=== PATIENT | female | born 1950 | race Caucasian/White ===

== ENCOUNTER 2016-06-06 12:16 | Emergency (ER) | payer OTHER | END 2016-06-06 15:00 | disposition home or self-care (01) | DX: S30.0XXA Contusion of lower back and pelvis, initial encounter (principal); M54.2 Cervicalgia; R51 Headache; W10.8XXA Fall (on) (from) other stairs and steps, initial encounter; R03.0 Elevated blood-pressure reading, without diagnosis of hypertension ==

== ENCOUNTER 2016-07-26 09:48 | Outpatient (CLI) | payer OTHER ==
--- NOTE | 2016-07-27 16:13 | Mammography Report ---
DIGITAL SCREENING MAMMOGRAM: 07/26/2016 CLINICAL INDICATION: A 66-year-old nulliparous patient, for screening. COMPARISON: 06/2015, 05/2014, 05/2013, 04/2011, 04/2010, 03/2009. TECHNIQUE: Routine CC and MLO projections were obtained of the breasts. FINDINGS: The breasts again demonstrate scattered fibroglandular densities bilaterally. Coarse, typi brijesh benign calcifications are present. No suspicious masses, clustered microcalcifications, or alana ons of architectural distortion are identified. IMPRESSION: BENIGN FINDINGS. RECOMMENDATION: ROUTINE ANNUAL SCREENING UNLESS OTHERWISE CLINICALLY INDICATED. BIRADS CATEGORY 2-BENIGN FINDINGS. STANDARD QUALIFYING STATEMENTS 1. This examination was reviewed with the aid of Computer-Aided Detection (CAD). 2. A negative or benign imaging report should not delay biopsy if clinically suspicious findings are present. Consider surgical consultation if warranted. More than 5% of cancers are not identified by i maging. 3. Dense breasts may obscure an underlying neoplasm. JOB #: [id number] EXT JOB #:[id number]
== END 2016-07-26 09:49 | disposition home or self-care (01) ==
LOC: DI 09:48
PROVIDERS: ATTEND Physician Assistant Medical
DX: Z12.31 Encounter for screening mammogram for malignant neoplasm of breast (principal)
CPT/HCPCS: 77067

== ENCOUNTER 2017-01-23 08:00 | Outpatient (CLI) | payer OTHER ==
[2017-01-25 13:41] LABS: TEST RESULT REPORT (())
== END 2017-01-23 08:01 | disposition home or self-care (01) ==
LOC: LAB.R 08:00
PROVIDERS: ATTEND Physician Assistant Medical
DX: R19.7 Diarrhea, unspecified (principal)
CPT/HCPCS: 81599; 82705; 83630; 87045; 87046; 87177; 87209; 87493

== ENCOUNTER → 2017-04-05 | Outpatient (CLI) | payer MEDICARE, OTHER ==
[2017-04-12 10:54] LABS: COLLECTION DURATION 72 h; TOTAL SPECIMEN WEIGHT 656 g
== END ==
LOC: LAB.R 06:40
PROVIDERS: ATTEND Internal Medicine
DX: R19.7 Diarrhea, unspecified (principal)
CPT/HCPCS: 82710

== ENCOUNTER 2017-04-08 08:00 | Outpatient (CLI) | payer MEDICARE, OTHER ==
[2017-04-12 10:54] LABS: COLLECTION DURATION 72 h; TOTAL SPECIMEN WEIGHT 656 g
== END 2017-04-08 08:01 | disposition home or self-care (01) ==
LOC: LAB.R 08:00
PROVIDERS: ATTEND Internal Medicine
DX: R19.7 Diarrhea, unspecified (principal)
CPT/HCPCS: 81599; 82656; 82710; 87493

== ENCOUNTER 2017-04-17 12:03 | Day surgery (SDC) | payer MEDICARE, OTHER ==
[2017-04-17] MEDS ORDERED: LACTATED RINGERS 1,000 ML IV ONE (12:11)
[2017-04-17] MEDS ORDERED: MIDAZOLAM 2 MG/2 ML VIAL IVP ONE (13:04)
[2017-04-17] MEDS ORDERED: fentaNYL 100 MCG/2 ML VIAL IVP ONE (13:04)
[2017-04-17 14:38] VITALS: BP 110/44
== END 2017-04-17 12:04 | disposition home or self-care (01) ==
LOC: SDS 12:03
PROVIDERS: ATTEND Internal Medicine
PROC: 0DBN8ZZ Excision of Sigmoid Colon, Via Natural or Artificial Opening Endoscopic (ICD-10-PCS; principal; 2017-04-17 13:00)
DX: R19.7 Diarrhea, unspecified (principal); K63.5 Polyp of colon; K64.0 First degree hemorrhoids; K57.30 Diverticulosis of large intestine without perforation or abscess without bleeding
CPT/HCPCS: 45380; J7120

== ENCOUNTER 2017-09-02 15:11 | Outpatient (CLI) | payer MEDICARE, OTHER ==
--- NOTE | 2017-09-03 14:26 | Mammography Report ---
Procedure Date: 09/02/2017 Accession Number: [id number] / [id number] Procedure: AMBER - Screening Mammo Dig Bilat CPT Code: FULL RESULT: EXAM: Screening Mammo Dig Bilat DATE: 09/02/2017 3:27 PM CLINICAL HISTORY: 67-year-old nulliparous patient for screening TECHNIQUE: Bilateral CC and MLO views were obtained. COMPARISON: 07/26/2016, 07/04/2015, 06/03/2014, 05/11/2013, 04/28/2011, 04/28/2010, 03/18/2009 FINDINGS: The breasts demonstrate scattered fibroglandular densities bilaterally. A few coarse, typically benign calcifications are present. No suspicious masses, clustered microcalcifications, or regions of architectural distortion are identified. IMPRESSION: Benign findings RECOMMENDATION: Routine annual screening unless otherwise clinically indicated. BIRADS CATEGORY 2: Benign findings STANDARD QUALIFYING STATEMENTS: 1. This examination was reviewed with the aid of Computer-Aided Detection (CAD). 2. A negative or benign imaging report should not delay biopsy if clinically suspicious findings are present. Consider surgical consultation if warrented. More than 5% of cancers are not identified by imaging. 3. Dense breasts may obscure an underlying neoplasm.
== END 2017-09-02 15:12 | disposition home or self-care (01) ==
LOC: DI 15:11
PROVIDERS: ATTEND Physician Assistant Medical
DX: Z12.31 Encounter for screening mammogram for malignant neoplasm of breast (principal)
CPT/HCPCS: 77067

== ENCOUNTER 2017-09-02 15:30 | Outpatient (CLI) | payer MEDICARE, OTHER ==
--- NOTE | 2017-09-03 15:06 | DEXA Report ---
Procedure Date: 09/02/2017 Accession Number: [id number] / [id number] Procedure: DEX - Dexa Spine and/or Hip CPT Code: FULL RESULT: EXAM: Dexa Spine and/or Hip DATE: 09/02/2017 3:57 PM CLINICAL HISTORY: POSTMENOPAUSAL TECHNIQUE: Dual energy x-ray absorptiometry (DXA) was performed on a [employer] System. Regions measured are the AP Spine, femoral neck, and if needed forearm. COMPARISON: None. In accordance with the International Society for Clinical Densitometry (ISCD) guidelines, data from previous exams may be reanalyzed using current recommendations and techniques. This is done to allow a more accurate basis for comparison with the current study. FINDINGS: The data for the lumbar spine is as follows: BMD (g/cm/cm) T-SCORE Z-SCORE REGION L1 1.049 -0.7 0.4 L2 1.055 -1.2 -0.1 L3 1.177 -0.2 0.9 L4 1.008 -1.6 -0.5 TOTAL 1.073 -0.9 0.2 NOTE: All evaluable vertebrae are used for classification The data for the hip is as follows: BMD (g/cm/cm) T-SCORE Z-SCORE REGION Neck 0.821 -1.6 -0.4 TOTAL 0.856 -1.2 -0.4 NOTE: The femoral neck or total proximal femur, whichever is lowest, is used for classification. IMPRESSION: THE WHO CLASSIFICATION BASED ON THE INTERNATIONAL REFERENCE STANDARD IS OSTEOPENIA. THE FRACTURE RISK IS INCREASED. RECOMMENDATION: Patients with diagnosis of osteoporosis or osteopenia should have regular bone mineral density assessment. For those eligible for Medicare, routine testing is allowed once every 2 years. Testing frequency can be increased for patients who have rapidly progressing disease or for those who are receiving medical therapy to restore bone mass. COMMENT: World Health Organization (WHO) definitions for osteoporosis and osteopenia: NORMAL BMD: T-score at -1.0 or higher, fracture risk is low OSTEOPENIA BMD: T-score between -1.0 and -2.5, fracture risk is increased. OSTEOPOROSIS BMD: T-score at -2.5 or lower, fracture risk is high. National Osteoporosis Foundation recommends: 1. Obtain adequate dietary calcium (at least 1200 mg per day) and vitamin D (400-800 international units per day). 2. Participate, as appropriate, in regular weightbearing and muscle-strengthening exercise. 3. Avoid tobacco use and reduce alcohol and caffeine intake. 4. For more detailed information see the website at www.NOF.org.
== END 2017-09-02 15:31 | disposition home or self-care (01) ==
LOC: DI 15:30
PROVIDERS: ATTEND Physician Assistant Medical
DX: M85.88 Other specified disorders of bone density and structure, other site (principal)
CPT/HCPCS: 77080

== ENCOUNTER 2018-09-04 08:18 | Outpatient (CLI) | payer MEDICARE, OTHER ==
--- NOTE | 2018-09-05 09:35 | Mammography Report ---
Reason: SCREENING FOR BREAST CANCER Procedure Date: 09/04/2018 Accession Number: [id number] / [id number] Procedure: AMBER - Screening Mammo w/Silas CPT Code: FULL RESULT: EXAM: Screening Mammo w/Silas DATE: 09/04/2018 8:58 AM CLINICAL HISTORY: Screening encounter. History of nulliparity. Personal history of ovarian cancer. TECHNIQUE: (B) - Bilateral CC and MLO views were obtained. COMPARISON: 09/02/2017 through 06/03/2014. PARENCHYMAL PATTERN: (A) - The breast(s) demonstrate(s) scattered fibroglandular densities. FINDINGS: Note is made of vascular calcifications and coarse calcifications, typically benign. There are no suspicious masses, calcifications, or areas of distortion. IMPRESSION: Benign findings. BI-RADS category 2. RECOMMENDATION: (ANNUAL) - Recommend routine annual screening mammography. BI-RADS CATEGORY: (2) - Benign Findings. STANDARD QUALIFYING STATEMENTS: 1. This examination was not reviewed with the aid of Computer-Aided Detection (CAD). 2. A negative or benign imaging report should not preclude biopsy if clinically suspicious findings are present. 3. Dense breasts may obscure an underlying neoplasm. 4. This examination was reviewed with the aid of 3D breast imaging (tomosynthesis).
== END 2018-09-04 08:19 | disposition home or self-care (01) ==
LOC: DI 08:18
PROVIDERS: ATTEND Nurse Practitioner
DX: Z12.31 Encounter for screening mammogram for malignant neoplasm of breast (principal)
CPT/HCPCS: 77063; 77067

== ENCOUNTER 2018-09-17 09:19 | Outpatient (CLI) | payer MEDICARE, OTHER ==
[2018-09-17 10:12] LABS: ALBUMIN 4.1 g/dL (3.2-5.5); BILIRUBIN,DIRECT 0.1 mg/dL (0.1-0.5); BILIRUBIN,TOTAL 0.6 mg/dL (0.2-1.0); TOTAL PROTEIN 7.4 g/dL (6.7-8.2)
[2018-09-18 11:31] LABS: HEPATITIS C ANTIBODY NON-REACTIVE (NON-REACTIVE)
== END 2018-09-17 09:20 | disposition home or self-care (01) ==
LOC: LAB 09:19
PROVIDERS: ATTEND Nurse Practitioner
DX: R79.89 Other specified abnormal findings of blood chemistry (principal); Z11.59 Encounter for screening for other viral diseases
CPT/HCPCS: 36415; 80076; 86803

== ENCOUNTER 2019-08-28 06:56 | Outpatient (CLI) | payer MEDICARE, OTHER ==
[2019-08-28 07:52] LABS: ALBUMIN 4.1 g/dL (3.2-5.5); ALBUMIN/GLOBULIN RATIO 1.3 (1.0-2.2); ALKALINE PHOSPHATASE 84 IU/L (42-121); ALT ALANINE AMINOTRANSFERASE 31 IU/L (10-60); AST ASPARTATE AMINOTRANSFERASE 29 IU/L (10-42); BILIRUBIN,TOTAL 0.7 mg/dL (0.2-1.0); BUN - BLOOD UREA NITROGEN 12 mg/dL (6-20); CALCIUM 9.6 mg/dL (8.5-10.3); CARBON DIOXIDE - CO2 27 mmol/L (21-32); CHLORIDE 105 mmol/L (101-111); CHOL/HDL RATIO 2.9 (<4.4); CHOLESTEROL 153 mg/dL; CREATININE 0.8 mg/dL (0.4-1.0); GLUCOSE 107 mg/dL (70-100); HDL CHOLESTEROL 53 mg/dL; LDL CHOLESTEROL,CALCULATED 80 mg/dL; LDL/HDL RATIO 1.5 (<4.4); SODIUM 139 mmol/L (135-145); TOTAL PROTEIN 7.3 g/dL (6.7-8.2); VLDL CHOLESTEROL 20 mg/dL
== END 2019-08-28 06:57 | disposition home or self-care (01) ==
LOC: LAB 06:56
PROVIDERS: ATTEND Nurse Practitioner
DX: R79.89 Other specified abnormal findings of blood chemistry (principal)
CPT/HCPCS: 36415; 80053; 80061; 83721

== ENCOUNTER 2019-11-18 09:13 | Outpatient (CLI) | payer MEDICARE, OTHER ==
--- NOTE | 2019-11-18 12:56 | Mammography Report ---
BILATERAL DIGITAL SCREENING MAMMOGRAM 3D/2D: 11/18/2019 CLINICAL: Routine screening. Comparison is made to exams dated: 09/04/2018 mammogram, 09/02/2017 mammogram, 08/05/2016 mammogram, mammogram, 06/03/2014 mammogram, and 05/11/2013 mammogram - [facility]. There are scattered fibroglandular elements in both breasts. No significant masses, calcifications, or other findings are seen in either breast. There has been no significant interval change. IMPRESSION: NEGATIVE There is no mammographic evidence of malignancy. A 1 year screening mammogram is recommended. This exam was interpreted at Station ID: [id number]. NOTE: For mammograms, a report in lay terms will be sent to the patient. Approximately 15% of breast malignancies will not be visualized mammographically. In the management of a palpable breast mass, a negative mammogram must not discourage biopsy of a clinically suspicious lesion. Electronically Signed By: Ed Mcdonald M.D., jr/neha:11/18/2019 10:37:43 ACR BI-RADS Category 1: Negative 3341F PARENCHYMAL PATTERN: (A) - The breast(s) demonstrate(s) scattered fibroglandular densities. BI-RADS CATEGORY: (1) - 1 RECOMMENDATION: (ANNUAL) - Recommend routine annual screening mammography. [id number] 1 year screening LATERALITY: (B)
== END 2019-11-18 09:14 | disposition home or self-care (01) ==
LOC: DI 09:13
PROVIDERS: ATTEND Nurse Practitioner
DX: Z12.31 Encounter for screening mammogram for malignant neoplasm of breast (principal)
CPT/HCPCS: 77063; 77067

== ENCOUNTER 2019-11-24 09:55 | Outpatient (CLI) | payer MEDICARE, OTHER ==
--- NOTE | 2019-11-24 13:56 | DEXA Report ---
PROCEDURE: Dexa Spine and/or Hip INDICATIONS: POST MENOPAUSALPOST TECHNIQUE: Dual energy x-ray absorptiometry (DXA) was performed on a [employer] System. Regions measur ed are the AP Spine, femoral neck, and if needed forearm. COMPARISON: DEXA 09/02/2017 FINDINGS: Lumbar Spine: Bone Mineral Density 1.06 to g/cm/cm,T score -1.0, compared to -0.9 on prior exam, normal Left Hip: Bone Mineral Density 0.837 g/cm/cm,T score -1.4 compared to -1.2 on prior exam. Mild osteopenia. Left Femoral Neck: Bone Mineral Density 0.826 g/cm/cm, T score -1.5, compared to -1.6 on prior exam. Mild osteopenia (T score greater or equal to -1.0: NORMAL) (T score from -1.1 to -2.4: OSTEOPENIA) (T score less than or equal to -2.5 to: OSTEOPOROSIS) Impression: Osteopenia with minimal interval progression most notably in the left hip as above. Patients with diagnosis of osteoporosis or osteopenia should have regular bone mineral density assess ment. For those eligible for Medicare, routine testing is allowed once every 2 years. Testing frequ ency can be increased for patients who have rapidly progressing disease or for those who are receivin g medical therapy to restore bone mass. Reviewed by: Aminta Wade MD on 11/24/2019 1:54 PM PDT Approved by: Aminta Wade MD on 11/24/2019 1:54 PM PDT Station ID: [id number]
== END 2019-11-24 09:56 | disposition home or self-care (01) ==
LOC: DI 09:55
PROVIDERS: ATTEND Nurse Practitioner
DX: M85.89 Other specified disorders of bone density and structure, multiple sites (principal)
CPT/HCPCS: 77080

== ENCOUNTER 2020-02-16 14:33 | Emergency (ER) | payer MEDICARE, OTHER ==
--- NOTE | 2020-02-16 14:59 | ED Physician Documentation ---
History of Present Illness - Stated complaint Stated Complaint: DIZZY - Chief complaint Chief Complaint: Neuro - History obtained from History obtained from: Patient - Additonal information Additional information: 69-year-old female presents to the emergency department for evaluation of dizziness and lightheadedness. She reports that last week she began noticing that she had a sensation of the room spinning when she would wake up in the morning. The sensation would typically last about 15 minutes before abating. She denies though that it was associated with sitting standing lying or head turning. Since then she has developed a sensation of fullness and pressure in her head. However she denies that she has a headache, no diplopia. However over the last week she has also noticed that she is feeling lightheaded especially after exertion. She denies that she is having chest pain or shortness of air. She denies any history of hypertension diabetes. She is a non-smoker. She is mostly worried because over the last few days she is also been having some diarrhea that is nonbloody. pmh: depression meds: ritalin, prozac, trazadone Review of Systems Constitutional: denies: Fever, Chills, Myalgias Eyes: denies: Loss of vision, Decreased vision, Photophobia Ears: reports: Reviewed and negative Nose: reports: Reviewed and negative Throat: reports: Reviewed and negative Cardiac: denies: Chest pain / pressure, Palpitations, Pedal edema, Calf pain Respiratory: denies: Dyspnea, Hemoptysis, Wheezing GI: reports: Abdominal Pain, Diarrhea. denies: Nausea, Vomiting, Constipation, Hematemesis : denies: Dysuria, Frequency, Hesitancy Skin: denies: Rash, Lesions Musculoskeletal: denies: Neck pain, Back pain, Joint pain Neurologic: reports: Other (light headed and dizzy). denies: Numbness, Near syncope, Syncope, Seizure, Altered mental status, Headache, Head injury, LOC Psychiatric: reports: Reviewed and negative Endocrine: reports: Reviewed and negative PD PAST MEDICAL HISTORY - Present Medications Home Medications: Ambulatory Orders Medication Instructions Recorded Confirmed Methylphenidate [Ritalin] 20 mg PO DAILY 06/06/16 02/16/20 traZODone [Desyrel] 25 mg PO HS 06/06/16 02/16/20 Atorvastatin [Lipitor] 10 mg PO DAILY 04/16/17 02/16/20 Fluoxetine HCl 60 mg PO DAILY 04/16/17 02/16/20 - Allergies Allergies/Adverse Reactions: Allergies Allergy/AdvReac Type Severity Reaction Status Date / Time bupropion [From Wellbutrin] Allergy Unknown Verified 02/16/20 14:40 niacin Allergy Unknown Verified 02/16/20 14:40 tape Allergy Unknown Uncoded 09/01/19 12:16 PD ED PE EXPANDED - General General: Alert. No: No acute distress, Well developed/nourished, Disheveled, poorly kept - HEENT HEENT: PERRL, EOMI, Moist mucous membranes, Pharynx normal - Eyes Eyes: PERRL, EOMI - Neck Neck: Supple w/out meningeal sx, No tenderness. No: Brudzinki's, Kernig's, Adenopathy - Cardiac Cardiac: Regular Rate, Regular Rhythm, Radial strong equal, Pedal strong equal, Cap refill < 2 sec. No: Murmur Present - Respiratory Respiratory: Clear to ausultation lg. No: Distress, Labored - Abdomen Abdomen: Normal Bowel sounds. No: Tender to palpation - Back Back: Normal exam. No: Vertebral tenderness, Soft tissue tenderness - Derm Derm: Normal color. No: Rash - Extremities Extremities: Normal. No: Tenderness, Pedal edema R, Pedal edema L, Pedal edema bilateral - Neuro Neuro: Alert and Oriented X 3, CNII-XII intact, Cerebellar nl, Normal gait, Normal finger nose, Normal speech - GCS Eye Opening: Spontaneous Motor: Obeys Commands Verbal: Oriented Total: 15 Results - Vitals Vitals: Vital Signs - 24 hr 02/16/20 02/16/20 14:40 15:09 Temperature 36.6 C 37.4 C Heart Rate 73 72 Respiratory 18 16 Rate Blood Pressure 153/68 H 145/72 H O2 Saturation 99 99 Oxygen O2 Source Room air - EKG (time done) 1525 Rate: Rate (enter#) (63) Rhythm: NSR [place]: Normal Intervals: Normal DE QRS: Normal Ischemia: Normal ST segments Compare to prior EKG: Old EKG unavailable Computer interpretation: Agree with computer - Labs Labs: Laboratory Tests 02/16/20 02/16/20 02/16/20 15:00 15:00 15:00 WBC 6.1 RBC 4.41 Hgb 14.4 Hct 41.6 MCV 94.3 MCH 32.7 H MCHC 34.6 RDW 11.4 L Plt Count 175 MPV 9.4 Neut # (Auto) 3.4 Lymph # (Auto) 1.8 [place]wey # (Auto) 0.6 Eos # (Auto) 0.2 Baso # (Auto) 0.0 Absolute Nucleated RBC 0.00 Nucleated RBC % 0.0 Sodium 139 Potassium 3.8 Chloride 104 Carbon Dioxide 25 Anion Gap 10.0 BUN 14 Creatinine 0.7 Estimated GFR (MDRD) 83 L Glucose 113 H Calcium 9.9 Total Bilirubin 0.7 AST 25 ALT 29 Alkaline Phosphatase 82 Troponin I High Sens 2.9 Total Protein 7.3 Albumin 4.3 Globulin 3.0 Albumin/Globulin Ratio 1.4 Lipase 44 Urine Color Urine Clarity Urine pH Ur Specific Forbes Urine Protein Urine Glucose (UA) Urine Ketones Urine Occult Blood Urine Nitrite Urine Bilirubin Urine Urobilinogen Ur Leukocyte Esterase Ur Microscopic Review Urine Culture Comments 02/16/20 16:00 WBC RBC Hgb Hct MCV MCH MCHC RDW Plt Count MPV Neut # (Auto) Lymph # (Auto) [place]wey # (Auto) Eos # (Auto) Baso # (Auto) Absolute Nucleated RBC Nucleated RBC % Sodium Potassium Chloride Carbon Dioxide Anion Gap BUN Creatinine Estimated GFR (MDRD) Glucose Calcium Total Bilirubin AST ALT Alkaline Phosphatase Troponin I High Sens Total Protein Albumin Globulin Albumin/Globulin Ratio Lipase Urine Color YELLOW Urine Clarity CLEAR Urine pH 6.5 Ur Specific Forbes <=1.005 Urine Protein NEGATIVE Urine Glucose (UA) NEGATIVE Urine Ketones NEGATIVE Urine Occult Blood NEGATIVE Urine Nitrite NEGATIVE Urine Bilirubin NEGATIVE Urine Urobilinogen 0.2 (NORMAL) Ur Leukocyte Esterase TRACE H Ur Microscopic Review INDICATED Urine Culture Comments Not Reportable - Rads (name of study) CT angio head/neck Radiology: Final report received (No hemodynamically significant stenosis in the carotid or vertebral arteries systems in the neck Or significant stenosis or occlusion of the major intracranial arterial circulation), See rad report PD MEDICAL DECISION MAKING - ED course Complexity details: reviewed results, re-evaluated patient, considered differential, d/w patient ED course: 69-year-old female presents to the emergency department for evaluation of intermittent vertigo which she describes as a spinning sensation. This is often when she wakes up in the morning. However her other concern is that she has begun to feel increasingly lightheaded especially with exertion. EKG is nonischemic. High-sensitivity troponin is negative. She denies chest pain or shortness of air. Her labs today are also unrevealing. No significant anemia or electrolyte abnormality. Patient is advised that she should have outpatient echocardiogram or stress test to further evaluate the feeling of lightheadedness while on exertion. Patient is to return to the emergency department for chest pain, syncope, palpitations or any other emergent worrisome findings. Departure - Departure Disposition: Home, Self Care Clinical Impression: Dizzy, Light headed Condition: Stable Record reviewed to determine appropriate education?: Yes Follow-Up: Venecia Taveras ARNP, CHEF & OWNER-C [Primary Care Provider] - Within 1 week Comments: Shu your EKG chest x-ray are all essentially normal today. Your labs and electrolytes are also normal. The CT scanning did not show any worrisome occlusions in yoru head or neck. However given that you are increasingly lightheaded with activity your primary doctor should consider outpatient stress test or echocardiogram. If at any point you develop chest pain, have shortness of air, have any fainting episodes please return immediately to the ER.
[2020-02-16 15:12] LABS: BASOPHILS % (AUTO) 0.5 %; EOSINOPHILS # (AUTO) 0.2 10^3/uL (0.0-0.7); EOSINOPHILS % (AUTO) 2.5 %; HGB - HEMOGLOBIN 14.4 g/dL (12.0-16.0); LYMPHOCYTES # (AUTO) 1.8 10^3/uL (1.5-3.5); LYMPHOCYTES % (AUTO) 30.1 %; MEAN CORPUSCULAR HEMOGLOBIN 32.7 pg (27.0-31.0); MEAN CORPUSCULAR HGB CONC 34.6 g/dL (32.0-36.0); MEAN CORPUSCULAR VOLUME 94.3 fL (81.0-99.0); MEAN PLATELET VOLUME 9.4 fL (7.9-10.8); MONOCYTES # (AUTO) 0.6 10^3/uL (0.0-1.0); MONOCYTES % (AUTO) 10.2 %; NEUTROPHILS # (AUTO) 3.4 10^3/uL (1.5-6.6); NEUTROPHILS % (AUTO) 56.5 %; PLT - PLATELET COUNT 175 10^3/uL (130-450); RED BLOOD COUNT 4.41 10^6/uL (4.20-5.40); RED CELL DISTRIBUTION WIDTH 11.4 % (12.0-15.0); WHITE BLOOD COUNT 6.1 x10^3/uL (4.8-10.8)
--- NOTE | 2020-02-16 15:19 | XRAY Report ---
PROCEDURE: Chest 1 View X-Ray INDICATIONS: Chest Pain TECHNIQUE: One view of the chest was acquired. COMPARISON: 08/21/2019 FINDINGS: Surgical changes and devices: None. Lungs and pleura: No pleural effusions or pneumothorax. Lungs are clear. Mediastinum: Mediastinal contours appear normal. Heart size is normal. Bones and chest wall: No suspicious bony lesions. Overlying soft tissues appear unremarkable. IMPRESSION: No acute disease. Reviewed by: Boogie Shine MD on 02/16/2020 3:17 PM PST Approved by: Boogie Shine MD on 02/16/2020 3:17 PM PST Station ID: [id number]
[2020-02-16 15:22] LABS: ALBUMIN 4.3 g/dL (3.2-5.5); ALBUMIN/GLOBULIN RATIO 1.4 (1.0-2.2); BILIRUBIN,TOTAL 0.7 mg/dL (0.2-1.0); CALCIUM 9.9 mg/dL (8.5-10.3); CREATININE 0.7 mg/dL (0.4-1.0); TOTAL PROTEIN 7.3 g/dL (6.7-8.2)
[2020-02-16] MEDS ORDERED: IOVERSOL 320 100 ML VIAL IVP ONE ×2 (15:28→15:55)
--- NOTE | 2020-02-16 16:10 | CT Report ---
PROCEDURE: ANGIO HEAD W/WO INDICATIONS: L sided facial droop CONTRAST: IV CONTRAST: Optiray 320 ml: 80 PO CONTRAST: *NO PO CONTRAST TECHNIQUE: Precontrast 4.5 mm thick angled axial sections acquired from the foramen magnum to the vertex. Afte r the administration of intravenous contrast, 1 mm thick sections acquired through the [place] of [place] is. Postcontrast 4.5 mm thick sections then re-acquired from the foramen magnum to the vertex. 3-di mensional jpoulhi-agvgvpblz-bcldqtwwmf (MIP) and/or volume rendering reformats were acquired of the c entral intracranial vasculature. For radiation dose reduction, the following was used: automated ex posure control, adjustment of mA and/or kV according to patient size. COMPARISON: None FINDINGS: Image quality: Excellent. Anterior circulation: Atherosclerotic calcifications within the carotid siphons producing trace narro wing. Remaining visualized portions of the internal carotid arteries are widely patent. Normal branch configuration of the anterior and middle cerebral arteries with no hemodynamic significant stenosis or occlusion. Anterior communicating artery is present. No aneurysm in the anterior circulation ident ified. Posterior circulation: Distal V4 segments, basilar artery, and the posterior cerebral arteries are no rmal in caliber. CSF spaces: Ventricles are normal in size and shape. Basal cisterns are patent. No extra-axial flu id collections. Brain: No midline shift. No intracranial bleeds or masses. Rivera-white matter interface appears int act. Skull and face: Calvarium and facial bones appear intact, without suspicious lesions. Sinuses: Visualized sinuses and mastoids are clear. IMPRESSION: No hemodynamically significant stenosis or occlusion of the major intracranial arterial circulation. No intracranial hemorrhage or other acute finding by CT. Reviewed by: Ed Mcdonald MD on 02/16/2020 4:09 PM PST Approved by: Ed Mcdonald MD on 02/16/2020 4:09 PM PST Station ID: [id number]
--- NOTE | 2020-02-16 16:12 | CT Report ---
PROCEDURE: ANGIO NECK W INDICATIONS: Left-sided facial droop, left neck pain CONTRAST: IV CONTRAST: Optiray 320 ml: 80 PO CONTRAST: *NO PO CONTRAST TECHNIQUE: After the administration of intravenous contrast, 1.5 mm axial sections acquired from the aortic arch to the [place] of [place]. Coronal 3-D maximum intensity projection (MIP) and/or volume rendering ref ormats were then performed. For radiation dose reduction, the following was used: automated exposur e control, adjustment of mA and/or kV according to patient size. COMPARISON: None. FINDINGS: Image quality: Excellent. Carotid system: The great vessels demonstrate a conventional anatomy as they arise from the aortic a rch. The origins of the common carotid arteries appear patent. The common carotid arteries demonstr ate normal calibers and courses. The bifurcation regions appear normal bilaterally. The internal ca rotid arteries demonstrate normal caliber and course. Posterior circulation: The origins of the vertebral arteries appear patent. The more superior porti ons of the vertebral arteries demonstrate normal course and caliber. They join to form a normal appe aring basilar artery. Soft tissues: Visualized neck soft tissues demonstrate no suspicious abnormalities. The thyroid gla nd is normal in size. Bones: No suspicious bony lesions. Visualized cervical spine appears normally aligned. IMPRESSION: No hemodynamically significant stenosis of the carotid or vertebral artery systems in the neck. The estimate of stenosis included in the report of the imaging study was calculated using the NASCET method Reviewed by: Ed Mcdonald MD on 02/16/2020 4:11 PM PST Approved by: Ed Mcdonald MD on 02/16/2020 4:11 PM PST Station ID: [id number]
[2020-02-16 16:18] LABS: BILIRUBIN,URINE NEGATIVE (NEGATIVE); GLUCOSE, URINE (UA) NEGATIVE (NEGATIVE); KETONES,URINE (UA) NEGATIVE (NEGATIVE); LEUKOCYTE ESTERASE, URINE TRACE (NEGATIVE); NITRITE,URINE NEGATIVE (NEGATIVE); OCCULT BLOOD,URINE NEGATIVE (NEGATIVE); PH,URINE 6.5 PH (5.0-7.5); PROTEIN,URINE NEGATIVE (NEGATIVE); UROBILINOGEN,URINE 0.2 (NORMAL) E.U./dL (NORMAL)
[2020-02-16 16:20] LABS: CLARITY,URINE CLEAR (CLEAR)
[2020-02-16 16:36] LABS: BACTERIA,URINE Rare /HPF (None Seen); MUCUS,URINE Few Strands; RBC,URINE 0-5 /HPF (0-5); SQUAMOUS EPITHELIAL CELL,UR RARE Squamous (<= Few)
[2020-02-16 16:54] VITALS: BP 129/63
== END 2020-02-16 17:00 | disposition home or self-care (01) ==
LOC: ED 14:33
DX: R42 Dizziness and giddiness (principal)
CPT/HCPCS: 36415; 70496; 70498; 71045; 80053; 81001; 83690; 84484; 85025; 87086; 93005; 99284; Q9967; 81003

== ENCOUNTER 2020-03-23 08:08 | Outpatient (CLI) | payer MEDICARE, OTHER ==
--- OUTSIDE RECORDS SUMMARY | 2020-03-23 08:12 | EXTERNAL MEDICAL SUMMARY RPT | Continuity of Care Document ---
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 Nitin Unavailable Unavailable Roof Unavailable Unavailable Jacus Unavailable Unavailable Problems date description facility 2012-09-30 10:20 OTH MALAISE FATIGUE [facility] 2013-04-29 07:06 HYPERLIPIDEMIA NEC/NOS [facility] 2013-04-29 07:06 ATTN DEFIC NONHYPERACT [facility] 2013-04-29 07:06 BONE CARTILAGE DIS NOS [facility] 2013-04-29 07:06 OTH MED,LT,CURRENT USE [facility] 2013-05-11 11:09 HX-HEALTH HAZARDS [facility] 2013-05-11 11:09 SCRN MAMMO-HIGH RISK PT, [facility] MALIGNANT NEOPLASM OF BREAST 2013-06-30 11:12 HYPERLIPIDEMIA NEC/NOS [facility] 2013-06-30 11:12 OTH MED,LT,CURRENT USE [facility] 2014-01-14 07:00 ABDOMINAL PAIN, RIGHT UPPER [facility] 2014-01-14 11:15 ABDOMINAL PAIN, RIGHT UPPER [facility] 2014-04-29 07:35 MIXED HYPERLIPIDEMIA [facility] 2014-04-29 07:35 OTH MED,LT,CURRENT USE [facility] 2014-06-03 14:30 HX-HEALTH HAZARDS NEC [facility] 2014-06-03 14:30 SCRN MAMMO-HIGH RISK PT, [facility] MALIGNANT NEOPLASM OF BREAST 2015-06-09 08:09 HYPERLIPIDEMIA, UNSPECIFIED [facility] 2015-06-09 08:09 MAJOR DEPRESSIVE DISORDER, [facility] SINGLE EPISODE, UNSPECIFIED 2015-06-09 08:09 ENCNTR FOR GENERAL ADULT [facility] MEDICAL EXAM W/O ABNORMAL FINDINGS 2015-06-09 08:09 OTHER SENIOR LIVING (CURRENT) DR[facility] THERAPY 2015-07-01 08:14 CALCULUS OF GALLBLADDER W/O [facility] CHOLECYSTITIS W/O OBSTRUCTION 2015-07-04 09:59 PAIN, UNSPECIFIED [facility] 2015-07-04 09:59 ENCNTR SCREEN MAMMOGRAM FOR [facility] MALIGNANT NEOPLASM OF BREAST 2016-06-06 12:[address] [facility] 2016-06-06 12:16 ELEVATED BLOOD-PRESSURE [facility] READING, W/O DIAGNOSIS OF HTN 2016-06-06 12:[address] [facility] 2016-06-06 12:16 CONTUSION OF LOWER BACK AND [facility] PELVIS, INITIAL ENCOUNTER 2016-06-06 12:16 FALL (ON) (FROM) OTHER STAIRS [facility] AND STEPS, INITIAL ENCOUNTER 2016-07-26 09:48 ENCNTR SCREEN MAMMOGRAM FOR [facility] MALIGNANT NEOPLASM OF BREAST 2017-01-23 08:00 DIARRHEA, UNSPECIFIED [facility] 2017-04-05 06:40 DIARRHEA, UNSPECIFIED [facility] 2017-04-08 08:00 DIARRHEA, UNSPECIFIED [facility] 2017-04-17 12:03 DVRTCLOS OF LG INT W/O [facility] PERFORATION OR ABSCESS W/O BLEEDING 2017-04-17 12:[address] [facility] 2017-04-17 12:03 FIRST DEGREE HEMORRHOIDS [facility] 2017-04-17 12:03 DIARRHEA, UNSPECIFIED [facility] 2017-09-02 15:11 ENCNTR SCREEN MAMMOGRAM FOR [facility] MALIGNANT NEOPLASM OF BREAST 2017-09-02 15:30 OTH DISRD OF BONE DENSITY AND [facility] STRUCTURE, OTHER SITE 2018-09-04 08:18 ENCNTR SCREEN MAMMOGRAM FOR [facility] MALIGNANT NEOPLASM OF BREAST 2018-09-17 09:19 OTHER SPECIFIED ABNORMAL [facility] FINDINGS OF BLOOD CHEMISTRY 2018-09-17 09:19 ENCOUNTER FOR SCREENING FOR [facility] OTHER VIRAL DISEASES 2019-08-21 11:[address] [facility] 2019-08-21 11:52 OTH FORN OBJ IN RESP TRACT, [facility] PART UNSP IN CAUSE ASPHYX, INIT 2019-08-21 11:52 EXPOSURE TO OTHER SPECIFIED [facility] FACTORS, INITIAL ENCOUNTER 2019-08-28 06:56 OTHER SPECIFIED ABNORMAL [facility] FINDINGS OF BLOOD CHEMISTRY 2019-11-18 09:13 ENCNTR SCREEN MAMMOGRAM FOR [facility] MALIGNANT NEOPLASM OF BREAST 2019-11-24 09:55 OTH DISRD OF BONE DENSITY AND [facility] STRUCTURE, MULTIPLE SITES 2020-02-16 14:33 DIZZINESS AND GIDDINESS [facility] 2020-02-17 00:00:00 Dizziness and giddiness [facility] 2020-02-17 00:00:00 Dizziness [facility] Prim [facility] 2020-02-23 00:00:00 Dizziness and giddiness [facility] 2020-02-23 00:00:00 Exertional dizziness [facility] Pr [facility] 2020-02-23 00:00:00 Health-related behavior [facility] 2020-02-23 00:00:00 [facility] exposure [facility] [place] [facility] 2020-02-23 00:00:00 Exercise [facility] 2020-02-23 00:00:00 Never smoker [facility] 2020-02-26 00:00:00 STRESS ECHO [facility] 2020-03-23 08:00 DIZZINESS AND GIDDINESS [facility] Allergies date description facility CIPROFLOXACIN [facility] CODEINE SULFATE [facility] STATINS [facility] tape [facility] HYDROCHLOROTHIAZIDE [facility] METOPROLOL [facility] VERAPAMIL [facility] NO KNOWN ALLERGIES [facility] niacin [facility] bupropion [facility] tape [facility] niacin [facility] bupropion [facility] CODEINE [facility] METRONIDAZOLE [facility] TETRACYCLINE [facility] NO KNOWN [facility]ON[facility] ALLERGIES [facility] tape [facility] NO KNOWN ALLERGIES [facility] CASHEW [facility] AMLODIPINE [facility] AMOXICILLIN-POT CLAVULANATE [facility] HYDROCODONE-AC[facility]AMINOPHEN [facility] niacin [facility] bupropion [facility] NO KNOWN ENVIRONMENTAL ALLERGIES [facility] IODINE [facility] niacin [facility] bupropion [facility] tape [facility] niacin [facility] bupropion [facility] Procedures date description facility 2020-02-23 00:00:00 Exercise Stress Test [facility] [place] [facility] date description facility 2020-02-23 00:00[facility] [place] [facility] Results Social History date description facility 2020-02-23 00:00:00 [facility] [place] [facility] Social History date description facility 2020-02-23 00:00:00 [facility] [place] [facility] date description facility [id number]
--- NOTE | 2020-03-23 09:46 | CARDIAC PROCEDURE NOTE ---
DATE OF SERVICE: 03/23/2020 Physician: Alyssa Monroy MD, [facility] INDICATION: Exertional dizziness. CARDIAC RISK FACTORS: Postmenopausal status, elevated cholesterol, family history of heart disease. DESCRIPTION OF PROCEDURE: After signing informed consent, the patient underwent a Eloy-protocol treadmill stress test with Echo imaging pre- and post-exercise. RESTING HEART RATE: 59. PEAK HEART RATE: 128 (84% predicted maximum heart rate for age). RESTING BLOOD PRESSURE: 122/76. PEAK BLOOD PRESSURE: 251/56. The patient exercised for 6 minutes on a Eloy-protocol treadmill stress test. She achieved a peak heart rate of 128 (84% PMHR) and 7.16 METs. The patient had mild to moderate shortness of breath and rated her perceived exertion at 16/20 on the Javy scale at peak. Oxygen saturation was 94% to 97% on room air throughout the test. Blood pressure response was hypertensive. She had no chest pain. The patient also described no dizziness with exertion. RESTING EKG: Normal sinus rhythm, left atrial enlargement, LVH voltage. EKG AT PEAK: No new ST segment or T-wave changes. SUMMARY: 1. Abnormal resting EKG with presence of LVH. 2. Fair to good exercise tolerance. 3. No ischemic changes developed by EKG criteria during exercise. 4. Echo images reported separately and showed: The patient has a sigmoid septum (IHSS), and mild LVH, with normal LV systolic function. After exercise, she has normal contractility of all LV segments. 5. Echo Doppler was briefly done through the LV outflow tract and showed: At rest she has no abnormal gradient. With Valsalva maneuver (before exercise), she still has no gradient in the LV outflow tract. Immediately after exercise, she has a gradient of approximately 30 to 35 mmHg in the LV outflow tract. IMPRESSION: 1. Normal stress test for coronary artery disease evaluation. 2. Sigmoid septum (or IHSS, idiopathic hypertrophic subaortic stenosis) is present, which likely explains her heart murmur and is very likely the cause of dizziness with exertion since it will decrease cardiac output when the gradient goes up. RECOMMENDATIONS: Consider Cardiology referral for management of IHSS (negative inotropes like beta blockers, etc). TD: 03/23/2020 09:38 [facility]
== END 2020-03-23 08:09 | disposition home or self-care (01) ==
LOC: DI 08:08
PROVIDERS: ATTEND Internal Medicine
DX: R42 Dizziness and giddiness (principal); R94.31 Abnormal electrocardiogram [ECG] [EKG]
CPT/HCPCS: 93350

== ENCOUNTER 2020-04-14 11:10 | Outpatient (CLI) | payer MEDICARE, OTHER ==
[2020-04-14 11:53] VITALS: BP 130/76
--- NOTE | 2020-04-14 11:53 | SLEEP CARE CONSULTATION ---
Information from patient questionnaire entered by Marlee Stanton. I have reviewed and concur with the information entered by Marlee Stanton. This document represents the service I personally performed and the decisions made by me, Yaquelin Dowling ARNP. History of Present Illness Service Date and Time: 04/14/2020 1110 Reason for Visit: New patient Chief Complaint: reports: Unrefreshed sleep, Snoring, Excessive daytime sleepiness, Observed pauses in breathing, Other (referred by technical spec) Date of Onset: 40 plus years Usual bedtime: 9 pm Time it takes to fall asleep: a while Snores at night: Yes Observed to quit breathing while asleep: Yes Number of times waking at night: 1-2 Reasons for waking at night: reports: Pain (sometimes), Bathroom Toss, Turn, or Twitch while sleeping: Yes Recalls having dreams: Yes Usually gets out of bed at: varies 5-9:30 am Feels refreshed in the morning: No Morning headache: No Sleepy or fatigued during the day: Yes Ever fallen asleep while driving: Yes Takes day naps: Yes Prior sleep studies: Yes Year and Where: 1999 - [facility] in [place], [place]; 2006 - [facility] in [place], [place] Additional HPI information: I had the pleasure of seeing LISANDRO MARCANO today regarding the possibility of her having a sleep disorder. Her current complaints are unrefreshed sleep, excessive daytime sleepiness and was referred by cardiology. She was diagnosed in 1999 with mild obstructive sleep apnea and did use a CPAP for a couple months. She had to stop because it hurt her ears at that time. She had chronic ear infections as a child and feels this was the main cause of her ear pain. Her last study was in 05/01/99 and showed RDI of 7.9 and mild obstructive sleep apnea. She is here because her blood pressures are increasing, especially with exercise. She had a stress test due to lightheadedness and vertigo which showed this increase in pressures. She was sent for evaluation because of her blood pressures and because she continues to not get restful sleep, is tired all the time and takes naps every day. She feels depression is a contributing factor but not the only reason for her tiredness. 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 Patient is / and lives in [place]. Have you smoked in the past 12 months: No Alcohol use: No Caffeine use: Yes Caffeine amount and frequency: 1-2 cups of black tea Family History Family history of sleep disordered breathing: Yes (brother uses CPAP) Family Hx Sleep Apnea: Sibling: Sleep apnea - Untreated (attempting to tx but having complications) Allergies and Home Medications Drug allergies reviewed: Yes (wellbutrin, niacin, tape) Home medication list reviewed: Yes Allergy and home medication list: Fluoxetine 60 mg daily Methylphenidate 20 mg daily Trazodone 25 mg daily Atorvastatin 20 mg daily Multiple vitamin for women +50 Caltrate Review of Systems Weight loss over past 5 years: 15 Cardiovascular: reports: other (elevated blood pressure). denies: palpitations, irregular heart rate or pulse Gastrointestinal: denies: heartburn Neurological: denies: headaches Psychiatric: reports: Attention Deficit Hyperactivity, anxiety, depression, other (all fairly under control) Ear/Nose/Throat: reports: dry mouth/throat (often wake up with dry mouth, may sleep with mouth open and is on fluoxetine), tonsillectomy, wisdom teeth removed Musculoskeletal: reports: joint pain Immunologic: reports: sneezing (grass), itching (photinea and some other plants, medical adhesive) Physical Exam Blood Pressure: 130/76 Cuff size: regular Heart Rate: 78 O2 Saturation: 94 Height: 5 ft 5 in Weight: 170 lb Body Mass Index: 28.3 BMI Classification: Overweight Nostrils: patent to airflow Mouth and throat: narrow oropharynx Soft palate: long Hard palate: normal Uvula visualization: 50% Mallampati Class II Tongue: enlarged in size with teeth vigil on lateral edges Chin and jaw: normal size and position Heart: regular rate and rhythm Lungs: clear bilaterally Impression and Plan 1. Suspected Obstructive Sleep Apnea-Hypopnea Syndrome, as previously diagnosed in 1999 and as suggested by a continued history of loud and irregular snoring, observed cessation of breath while asleep, frequent awakening during the night, unrefreshed sleep, cognitive impairment, and excessive daytime sleepiness. Narrow oropharynx and obesity are common predisposing factors for obstructive sleep apnea-hypopnea syndrome. I recommend proceeding to polysomnography to confirm the diagnosis and to assess severity. I informed the patient of what the sleep studies involve and after some discussion, obtained agreement to proceed. The pathophysiology of obstructive sleep apnea-hypopnea syndrome was discussed with the patient and health risks of cardiovascular and cerebrovascular disease if not treated. Risks of drowsy driving discussed in detail and patient advised to avoid long distance driving and to hook puller at the first sign of drowsiness. Patient agreed to plan. * Schedule polysomnography +- manual CPAP titration study and return in 1-2 weeks after the study to discuss result and initiate therapy. * Avoid long distance driving or driving when feeling sleepy. * Avoid alcohol, sedative and muscle relaxant around bedtime. * Review instructions provided by trained office staff on how to prepare for the sleep study. * Return for follow-up after sleep study completed. Visit Type: In Office Time Spent with Patient (minutes): 34 Provider Statement: I spent 100% of the Face to Face Visit with the patient with greater than 50% spent counseling the patient and coordination of care.
== END 2020-04-14 11:11 | disposition home or self-care (01) ==
LOC: SC 11:10
PROVIDERS: ATTEND Nurse Practitioner Family
DX: G47.33 Obstructive sleep apnea (adult) (pediatric) (principal); G47.10 Hypersomnia, unspecified; R03.0 Elevated blood-pressure reading, without diagnosis of hypertension; G47.8 Other sleep disorders; R06.83 Snoring; E66.3 Overweight; Z68.28 Body mass index [BMI] 28.0-28.9, adult
CPT/HCPCS: 99203; G0463; 99212

== ENCOUNTER 2020-05-05 10:01 | Outpatient (CLI) | payer MEDICARE, OTHER | END 2020-05-05 10:02 | disposition home or self-care (01) | LOC: SC 10:01 | PROVIDERS: ATTEND Nurse Practitioner Family | DX: G47.33 Obstructive sleep apnea (adult) (pediatric) (principal); E66.3 Overweight; Z68.28 Body mass index [BMI] 28.0-28.9, adult | CPT/HCPCS: G0399 ×2; 95806 ==

== ENCOUNTER 2020-05-10 14:42 | Outpatient (CLI) | payer MEDICARE, OTHER ==
--- NOTE | 2020-05-10 14:59 | SLEEP CARE CONSULTATION ---
Information from patient questionnaire entered by Olesya Diaz. I have reviewed and concur with the information entered by Olesya Diaz. This document represents the service I personally performed and the decisions made by , Yaquelin Dowling ARNP. History of Present Illness Service Date and Time: 05/10/2020 1440 Initial [place] Sleepiness Scale score: 10 (in 2020) Current [place] Sleepiness Scale score: 10 Additional HPI information: LISANDRO MARCANO returns via Telehealth visit for follow up and results of the recently performed home sleep study. I explained the pathophysiology behind obstructive sleep apnea. We then spent quite a bit of time discussing different treatment options. For mild obstructive sleep apnea, surgery and oral appliance are alternatives to nasal CPAP therapy but in moderate or severe cases, nasal CPAP is the most effective and reliable treatment. Because apnea is primarily in supine position, then positional management therapy could be effective. Methods discussed such as positioning with pillows, using a T-shirt with tennis balls in the back, and shown commercial products that have a pillow format on back to prevent supine sleep. I reviewed the impact of weight changes on sleep apnea and strongly recommended losing weight. After some discussion, the patient opted to go with the nasal CPAP therapy. Nasal autoCPAP set at 4-15 cmH20 will be ordered with rationale explained. A manual ti tration study will be ordered if unable to find optimal pressure with office adjustments. I explained how CPAP machine works and what to expect when using the machine. Using CPAP every night in order to get used to it was emphasized. Patient advised to put CPAP mask on before getting into bed so as not to fall asleep without CPAP. To assist acclimation to CPAP use, it could also be used for a short time during day while reading or watching TV. The patient was instructed to call the CPAP supplier to discuss any mechanical problem that may occur. If the mask given is uncomfortable or is difficult to keep on through the night even with adjustment, contact the CPAP supplier as many will replace with another mask style if notified before 30 days. If snoring or perceives is not getting enough air or too much air from the machine, notify this office. Sleep Study - Results Type of Sleep Study: Home sleep study Prior sleep studies: Yes Year and Where: 1999 - [facility] in [place], [place]; 2005 - [facility] in [place], [place] Polysomnography/Home Sleep Study results: Physician Impression: The quality of the study is good. The length of the study is adequate (> 240 minutes). Please also see the tabulated and graphic data. 1. Obstructive Sleep Apnea-Hypopnea (ICD-10 G47.33), mild, with an AHI of 12.0 /hr and michelle SaO2 of 89%. During the study, the patient had 95 apneas (95 obstructive, 0 central, 0 mixed) and 2 hypopneas. The longest episode lasted 57.5 seconds. The respiratory events occurred almost exclusively during supine sleep (supine AHI was 17.0 and non-supine, 2.84). 2. Hypoxemia (ICD-10 R09.02), minimal,, with the lowest oxygen saturation of 89 % and 0.1 minutes with SaO2 under 90%. Baseline oxygen saturation was normal (Average oxygen saturation was 95%). Allergies and Home Medications Home medication list reviewed: Yes (no changes) Review of Systems Review of systems same as previous: Yes (no changes) Physical Exam Vital signs obtained and entered by: Telehealth visit to reduce exposure during Covid pandemic Height: 5 ft 5 in Impression and Plan 1. Obstructive Sleep Apnea-Hypopnea Syndrome, mild, with lowest oxygen saturation of 89%. Obviously this is the cause of the patients symptoms of unrefreshed sleep, and excessive daytime sleepiness. Positive pressure therapy could benefit her anxiety, depression and attention deficit. As mentioned above, the patient will be started on nasal autoCPAP therapy with pressure set at 4-15 cmH2O. A manual titration study will be completed if unable to find optimal treatment pressure with office adjustments. Compliance guidelines also reviewed. A copy of compliance guidelines will be given for reference at check out. Because the apnea is more severe supine, I instructed to avoid sleeping supine using pillow positioning until able to start CPAP use. * Nasal auto CPAP therapy, pressure at 4-15 cm H2O. * Attempt to lose weight. * Avoid alcohol consumption near bedtime. * Avoid supine sleep until using CPAP. * The patient is again cautioned about driving until sleepiness completely resolves. * Return one month after CPAP obtained. I will assess response to therapy and compliance at that time. Counseling Topics: Weight loss health impact Visit Type: Telehealth Video Video Type: VSee Patient Location: Home Location of Provider: Office Time Spent with Patient (minutes): 23 Provider Statement: I spent 100% of the Telehealth Video Call with the patient with greater than 50% spent counseling the patient and coordination of care.
== END 2020-05-10 14:43 | disposition home or self-care (01) ==
LOC: SC 14:42
PROVIDERS: ATTEND Nurse Practitioner Family
DX: G47.33 Obstructive sleep apnea (adult) (pediatric) (principal)

== ENCOUNTER 2020-07-05 09:55 | Outpatient (CLI) | payer MEDICARE, OTHER ==
--- NOTE | 2020-07-05 10:32 | SLEEP CARE CONSULTATION ---
Information from patient questionnaire entered by Marlee Stanton. I have reviewed and concur with the information entered by Marlee Stanton. This document represents the service I personally performed and the decisions made by , Yaquelin Dowling ARNP. History of Present Illness Service Date and Time: 07/05/2020 0955 Previous diagnosis: Mild, Obstructive Sleep Apnea-Hypopnea Syndrome AHI: 12 (in 2020 and 2006) Reason for follow up: first compliance Equipment type: CPAP Equipment obtained from: [employer] (in [place]; getting supplies as needed) Mask style: Nasal Backup mask available: No (will keep old mask when replaced) Last cushion change: 1 week Prior sleep studies: Yes Year and Where: 1999 - [facility] in [place], [place]; 2005 - [facility] in [place], [place] Type of Sleep Study: Home sleep study HPI additional information: LISANDRO MARCANO was diagnosed to have mild, AHI 12.0, obstructive sleep apnea- hypopnea syndrome and returned today for CPAP therapy first compliance follow- up. CPAP Compliance Data - Data Reviewed with Patient Average duration of nightly device use: 7 hr 59 min Compliance rate %: 100 Current pressure setting (cmH2O): 4-15 (median 5.4, avg 7.4) Humidity settin Heated hose settin Average residual AHI: 5.1 Average large leak: 5 min 36 sec Subjective Patient concerns: reports: air blowing in eyes (resolves with adjustment). denies: aerophagia, mask discomfort, mask leak noise, condensation in mask/hose, nasal congestion (has allergies), dry mouth, nose, throat (has dry mouth due to prozac, not worse with CPAP), epistaxis, other Observed to snore while using device: No Current pressure setting perceived as: comfortable On therapy, patient: reports: sleeping better, awakening more refreshed, being more awake and alert during the day, more rested overall. denies: drowsiness while driving Initial [place] Sleepiness Scale score: 10 (in 2020) Current [place] Sleepiness Scale score: 4 Allergies and Home Medications Home medication list reviewed: Yes (no new meds) Review of Systems Review of systems same as previous: Yes (no changes) Physical Exam Heart Rate: 84 O2 Saturation: 98 Height: 5 ft 5 in Weight: 174 lb Body Mass Index: 28.9 BMI Classification: Overweight Impression and Plan 1. Obstructive Sleep Apnea-Hypopnea Syndrome, mild, with excellent treatment compliance and fair apnea control with minimal elevated residual. On CPAP therapy, the patient has better sleep quality and is more rested overall. The patients pressure will be changed to autoCPAP 6-8 cmH20 for elevation of residual AHI. Patient advised to contact me if pressure change is uncomfortable so that it can be adjusted. Goals for apnea control discussed. She has had some minor air in eyes that resolves with adjusting her mask. She states she does have some dry mouth that is chronic and has not worsened with CPAP therapy. She has allergies that start around this time and is having some nasal congestion in the mornings. I reviewed with patient that nasal congestion can be reduced with increasing the CPAP humidity. The heated hose can be adjusted higher if condensation with higher humidity setting. Saline nasal spray can be used prior to CPAP to clear nasal secretions and wash off any nasal allergens to facilitate nasal breathing. In addition, a steamy shower before bed will often assist nasal drainage. She voiced understanding and agreement with plan of care. She is very satisfied with her CPAP treatment. Patient's apnea severity and rationale for treatment to reduce apnea, improve sleep quality and reduce cardiovascular and cerebrovascular events was reviewed. I also reviewed the benefit of consistent device use of CPAP for depression/anxiety and attention deficit. * Change auto CPAP pressure to 6-8 cmH2O * Notify me if snoring with mask or feeling that the pressure is too much or too little * Attempt to lose weight * Call this office if any problems using CPAP * Return for follow up in 1 -2 months, or sooner if concerns arise Counseling Topics: Spare mask, Weight loss health impact Visit Type: In Office Time Spent with Patient (minutes): 23 Provider Statement: I spent 100% of the Face to Face Visit with the patient with greater than 50% spent counseling the patient and coordination of care.
== END 2020-07-05 09:56 | disposition home or self-care (01) ==
LOC: SC 09:55
PROVIDERS: ATTEND Nurse Practitioner Family
DX: G47.33 Obstructive sleep apnea (adult) (pediatric) (principal); E66.3 Overweight; Z68.28 Body mass index [BMI] 28.0-28.9, adult
CPT/HCPCS: 99213; G0463; 99212

== ENCOUNTER 2020-08-17 09:24 | Outpatient (CLI) | payer MEDICARE, OTHER ==
--- NOTE | 2020-08-17 09:50 | SLEEP CARE CONSULTATION ---
Information from patient questionnaire entered by Marlee Stanton. I have reviewed and concur with the information entered by Marlee Stanton. This document represents the service I personally performed and the decisions made by , Yaquelin Dowling ARNP. History of Present Illness Service Date and Time: 08/17/2020 09 Previous diagnosis: Mild, Obstructive Sleep Apnea-Hypopnea Syndrome AHI: 12 (in 2020 and 2006) Reason for follow up: other (6 week with pressure change) Equipment type: CPAP Equipment obtained from: [employer] (getting supplies) Mask style: Nasal Backup mask available: No (will keep old mask when replaced) Last cushion change: 1 week Prior sleep studies: Yes Year and Where: 1999 - [facility] in [place], [place]; 2005 - [facility] in [place], [place] Type of Sleep Study: Home sleep study HPI additional information: LISANDRO MARCANO was diagnosed to have mild, AHI 12, obstructive sleep apnea- hypopnea syndrome and returned today for CPAP therapy 6 week pressure change follow-up. CPAP Compliance Data - Data Reviewed with Patient Average duration of nightly device use: 7 hr 40 min Compliance rate %: 95.2 (42 days) Current pressure setting (cmH2O): 6-8 Humidity settin Heated hose settin Average residual AHI: 4.7 Average large leak: 2 min 44 sec Compliance data discussion: Patient states she is using it every night and even though the compliance report shows 2 missed days she is sure she used it those nights. Subjective Patient concerns: reports: dry mouth, nose, throat (just a couple days). denie s: aerophagia, mask discomfort, air blowing in eyes, mask leak noise, condensation in mask/hose, nasal congestion, epistaxis, other Observed to snore while using device: No Current pressure setting perceived as: comfortable On therapy, patient: reports: sleeping better, awakening more refreshed, being more awake and alert during the day, more rested overall. denies: drowsiness while driving Initial [place] Sleepiness Scale score: 10 (in 2020) Current [place] Sleepiness Scale score: 5 Allergies and Home Medications Home medication list reviewed: Yes (no changes) Review of Systems Review of systems same as previous: Yes (no changes) Physical Exam Heart Rate: 83 O2 Saturation: 98 Height: 5 ft 5 in Weight: 174 lb 9.6 oz Weight change since last visit: no Body Mass Index: 29.0 BMI Classification: Overweight Impression and Plan 1. Obstructive Sleep Apnea-Hypopnea Syndrome, mild, with good treatment compliance and good apnea control. On CPAP therapy, the patient has better sleep quality and is more rested overall. She has some oral and nasal dryness 2-3 days in the last month. I discussed with her increasing her humidification since setting is at 1. Oral dryness can be reduced by adjusting humidity setting higher or heated hose lower or by adjusting both settings. Patient advised that chronic oral dryness can affect dental health. I will have her follow-up in 3 months, no changes needed in her pressure today. Patient voiced understanding and agreement with plan. Patient's apnea severity and rationale for treatment to reduce apnea, improve sleep quality and reduce cardiovascular and cerebrovascular events was reviewed. I also reviewed the benefit of consistent device use of CPAP for depression, anxiety and attention deficit. * Continue auto CPAP pressure at 6-8 cmH2O * Notify me if snoring with mask or feeling that the pressure is too much or too little * Attempt to lose weight * Call this office if any problems using CPAP * Return for follow up in 3 months, or sooner if concerns arise Counseling Topics: Spare mask, Weight loss health impact Visit Type: In Office Time Spent with Patient (minutes): 17 Provider Statement: I spent 100% of the Face to Face Visit with the patient with greater than 50% spent counseling the patient and coordination of care.
== END 2020-08-17 09:25 | disposition home or self-care (01) ==
LOC: SC 09:24
PROVIDERS: ATTEND Nurse Practitioner Family
DX: G47.33 Obstructive sleep apnea (adult) (pediatric) (principal); E66.3 Overweight; Z68.29 Body mass index [BMI] 29.0-29.9, adult
CPT/HCPCS: 99212; G0463

== ENCOUNTER 2020-11-15 09:29 | Outpatient (CLI) | payer MEDICARE, OTHER ==
--- NOTE | 2020-11-15 10:20 | SLEEP CARE CONSULTATION ---
Information from patient questionnaire entered by Marlee Stanton. I have reviewed and concur with the information entered by Marlee Stanton. This document represents the service I personally performed and the decisions made by , Yaquelin Dowling ARNP. History of Present Illness Service Date and Time: 11/15/2020 09 Previous diagnosis: Mild, Obstructive Sleep Apnea-Hypopnea Syndrome AHI: 12 (in 2020) Reason for follow up: three month Equipment type: CPAP Equipment obtained from: [employer] (in [place]; getting supplies as needed) Mask style: Nasal Backup mask available: Yes (other mask) Last cushion change: today Prior sleep studies: Yes Year and Where: 2020-[facility]; 1999-[facility] in [place], [place]; 2005-[facility] Type of Sleep Study: Home sleep study HPI additional information: LISANDRO MARCANO was diagnosed to have mild, AHI 12.0, obstructive sleep apnea- hypopnea syndrome and returned today for CPAP therapy three month follow-up. CPAP Compliance Data - Data Reviewed with Patient Average duration of nightly device use: 7 hr 42 min Compliance rate %: 100 (90 days) Current pressure setting (cmH2O): 6-8 Humidity settin Heated hose settin Average residual AHI: 4.1 Average large leak: 6 min 17 sec Subjective Patient concerns: reports: dry mouth, nose, throat. denies: aerophagia, mask discomfort, air blowing in eyes, mask leak noise, condensation in mask/hose, nasal congestion, epistaxis, other Current pressure setting perceived as: comfortable Initial [place] Sleepiness Scale score: 10 (in 2020) Current [place] Sleepiness Scale score: 7 Allergies and Home Medications Home medication list reviewed: Yes (no changes) Review of Systems Review of systems same as previous: No (Chronic depression affecting her sleep) Physical Exam Heart Rate: 81 O2 Saturation: 98 Height: 5 ft 5 in Weight: 176 lb Body Mass Index: 29.2 BMI Classification: Overweight Impression and Plan 1. Obstructive Sleep Apnea-Hypopnea Syndrome, mild, with excellent treatment compliance and good apnea control. On CPAP therapy, the patient has better sleep quality and is more rested overall. In last few weeks she has noted a dry cough in the mornings for about 5-10 minutes. She has some mouth dryness in the morning. She has noticed some black debris in her water chamber. Oral dryness can be reduced by adjusting humidity setting higher or heated hose lower or by adjusting both settings. Verbal instructions given on how to change humidity and heated hose settings with rationale explaining why to change. I informed the patient that [employer] has a recall on several devices like the patients machine. Patient was encouraged to register their device online with [employer] for the recall to see if their device is affected. If their device is affected they should start a claim. Patient informed that they may use an inline CPAP filter that they can obtain online to reduce chance of any particles. Patient was advised to stop using her device since she has noted the debris in her device and she has developed a dry cough in last few weeks which could indicate breakdown of the foam in her device. I will write for a replacement device to see if her insurance will get her a new device. She was instructed to sleep on her side with pillow positioning until able to use her CPAP again. Patient voiced understanding and agreement with plan. Patient's apnea severity and rationale for treatment to reduce apnea, improve sleep quality and reduce cardiovascular and cerebrovascular events was reviewed. I also reviewed the benefit of consistent device use of CPAP for depress ion/anxiety and ADD. * Continue autoCPAP pressure at 6-8 cmH2O when device replaced/repaired * Replacement device to replace recalled device due to upper airway irritation and debris in device * Positional therapy until able to get new device, avoid supine sleep * Attempt to lose weight * Call this office if any problems * Return for follow up one month after obtaining new device, or sooner if concerns arise Counseling Topics: Spare mask, Weight loss health impact Visit Type: In Office Time Spent with Patient (minutes): 29 Provider Statement: I spent 100% of the Face to Face Visit with the patient with greater than 50% spent counseling the patient and coordination of care.
== END 2020-11-15 09:30 | disposition home or self-care (01) ==
LOC: SC 09:29
PROVIDERS: ATTEND Nurse Practitioner Family
DX: G47.33 Obstructive sleep apnea (adult) (pediatric) (principal); E66.3 Overweight; Z68.29 Body mass index [BMI] 29.0-29.9, adult
CPT/HCPCS: 99213; G0463; 99212

== ENCOUNTER 2021-11-09 10:25 | Outpatient (CLI) | payer MEDICARE, OTHER ==
--- NOTE | 2021-11-09 12:20 | DEXA Report ---
PROCEDURE: Dexa Spine and/or Hip INDICATIONS: OSTEOPENIA TECHNIQUE: Dual energy x-ray absorptiometry (DXA) was performed on a [employer] System. Regions measur ed are the AP Spine, femoral neck, and if needed forearm. COMPARISON: 11/24/2019. FINDINGS: Lumbar Spine: Bone Mineral Density 1.115 g/cm/cm,T score -0.5. There is interval 5% increase in total lumbar spi ne bone mineral density. Left Hip: Bone Mineral Density 0.850 g/cm/cm,T score -1.3. There is interval 1.6% increase in left total hip b one mineral density. Left Femoral Neck: Bone Mineral Density 0.818 g/cm/cm, T score -1.6. (T score greater or equal to -1.0: NORMAL) (T score from -1.1 to -2.4: OSTEOPENIA) (T score less than or equal to -2.5 to: OSTEOPOROSIS) Impression: Osteopenia. Patients with diagnosis of osteoporosis or osteopenia should have regular bone mineral density assess ment. For those eligible for Medicare, routine testing is allowed once every 2 years. Testing frequ ency can be increased for patients who have rapidly progressing disease or for those who are receivin g medical therapy to restore bone mass. Reviewed by: Trevor Peacock MD on 11/09/2021 12:19 PM PDT Approved by: Trevor Peacock MD on 11/09/2021 12:19 PM PDT Station ID: [id number]
== END 2021-11-09 10:26 | disposition home or self-care (01) ==
LOC: DI 10:25
PROVIDERS: ATTEND Physician Assistant
DX: M85.89 Other specified disorders of bone density and structure, multiple sites (principal)

== ENCOUNTER 2021-11-09 10:27 | Outpatient (CLI) | payer MEDICARE, OTHER ==
--- NOTE | 2021-11-10 10:14 | Mammography Report ---
BILATERAL DIGITAL SCREENING MAMMOGRAM 3D/2D: 11/09/2021 CLINICAL: Routine screening. Comparison is made to exams dated: 11/18/2019 mammogram, 09/04/2018 mammogram, 09/02/2017 mammogram, 07/10 mammogram, and 07/04/2015 mammogram - [facility]. There are scattered areas of fibroglandular density in both breasts (category b / 25%-50% glandular t issue). No significant masses, calcifications, or other findings are seen in either breast. There has been no significant interval change. IMPRESSION: NEGATIVE There is no mammographic evidence of malignancy. A 1 year screening mammogram is recommended. Based on the Tyrer Cuzick model (a risk assessment model) the patients lifetime risk is 5.2% and her 10 year risk is 3.1%. According to the ACR, ACS, and NCCN guidelines, an annual breast MRI exam lorena g with mammogram is recommended if the patients lifetime risk is 20% or greater. This exam was interpreted at Station ID: [id number]. NOTE: For mammograms, a report in lay terms will be sent to the patient. Approximately 15% of breast malignancies will not be visualized mammographically. In the management of a palpable breast mass, a negative mammogram must not discourage biopsy of a clinically suspicious lesion. Electronically Signed By: Gee kowalski/neha:11/09/2021 14:03:03 ACR BI-RADS Category 1: Negative 3341F PARENCHYMAL PATTERN: (A) - The breast(s) demonstrate(s) scattered fibroglandular densities. BI-RADS CATEGORY: (1) - 1 RECOMMENDATION: (ANNUAL) - Recommend routine annual screening mammography. [id number] 1 year screening LATERALITY: (B)
== END 2021-11-09 10:28 | disposition home or self-care (01) ==
LOC: DI 10:27
PROVIDERS: ATTEND Physician Assistant
DX: Z12.31 Encounter for screening mammogram for malignant neoplasm of breast (principal)

== ENCOUNTER 2022-10-18 14:14 | Outpatient (CLI) | payer MEDICARE, OTHER ==
--- NOTE | 2022-10-18 14:42 | Sleep Patient Instructions ---
Sleep Center Visit Summary - Patient Visit Information Reason for Visit: Eight Month Followup with PAP therapy - Patient Instructions Additional Instructions: You were here for follow up of CPAP therapy. You will be continued on CPAP therapy with pressure at 6-8 cmH2O. You should follow up with sleep care in 12 months. You may contact us sooner for any questions or concerns. - Clinic Information Contact: [facility] [address] [place] [address] [email or web address] T: [phone]
--- NOTE | 2022-10-18 14:51 | SLEEP CARE CONSULTATION ---
Information from patient questionnaire entered by Latricia Lennon. I have reviewed and concur with the information entered by Latricia Lennon. This document represents the service I personally performed and the decisions made by me, Yaquelin Dowling ARNP. History of Present Illness Service Date and Time: 10/18/2022 1414 Previous diagnosis: Mild, Obstructive Sleep Apnea-Hypopnea Syndrome AHI: 12 (in 2020) Reason for follow up: other (8 MONTH F/U) Equipment type: CPAP ([employer] - refurbished part received SD CARD NEEDED) Equipment obtained from: [employer] (in [place]; getting supplies as needed) Mask style: Nasal Mask brand: [employer]med (AirFit [id number]) Backup mask available: Yes (old mask) Last cushion change: 2 weeks Prior sleep studies: Yes Year and Where: 2020-[employer]; 1999-[facility] in [place], [place]; 2005[facility] Type of Sleep Study: Home sleep study HPI additional information: LISANDRO MARCANO was diagnosed to have mild, AHI 12, obstructive sleep apnea- hypopnea syndrome and returned today for CPAP therapy eight month follow-up. Sleep Study - Results Type of Sleep Study: Home sleep study Prior sleep studies: Yes [facility] and [email or web address] 1999-[facility] in [place], [place]; 2005[facility] CPAP Compliance Data Compliance data discussion: She received a replacement device but we do not have access to her data. She brought in her machine but not the electrical plug, so we were unable to get any information from her device. Subjective Missed days of use due to: reports: illness (infection after MOH scalp surgery for squamous ca) Patient concerns: reports: dry mouth, nose, throat (dry mouth). denies: aerophagia, mask discomfort, air blowing in eyes, mask leak noise, condensation in mask/hose, nasal congestion Observed to snore while using device: No On therapy, patient: reports: sleeping better, awakening more refreshed, being more awake and alert during the day, more rested overall. denies: drowsiness while driving Initial [place] Sleepiness Scale score: 10 (in 2020) Current [place] Sleepiness Scale score: 4 (10/18/22) Allergies and Home Medications Known drug allergies: Yes (as listed) Drug allergies reviewed: Yes Home medication list reviewed: Yes (no changes) Allergy and home medication list: Allergies bupropion [From Wellbutrin] Allergy (Verified 10/17/22 10:36) Unknown niacin Allergy (Verified 10/17/22 10:36) Unknown tape Allergy (Uncoded 10/17/22 10:36) Unknown Review of Systems Review of systems same as previous: No (MOH surgery for [place] skin cancer on scalp ) Physical Exam Vital signs obtained and entered by: LATRICIA Rea MA Blood Pressure: 122/70 (LEFT ARM) Cuff size: regular Heart Rate: 73 O2 Saturation: 98 Height: 5 ft 5 in Weight: 172 lb 9.6 oz Body Mass Index: 28.7 BMI Classification: Overweight Impression and Plan 1. Obstructive Sleep Apnea-Hypopnea Syndrome, mild, with unknown treatment compliance and unknown apnea control. On CPAP therapy, the patient has better sleep quality and is more rested overall. She brought in her device but we were unable to get a download of her information. She states she did have some time when she could not use her machine because of having skin cancer removed from her scalp. She is now using her CPAP nightly and feels the pressure is comfortable. She just wants to make sure it is set correctly. Once we are able to review her data, we will let her know if we need a sooner follow up. She voi marcus understanding. She has been experiencing some dry mouth, I advised her to adjust her humidity to decrease dryness. Patient's apnea severity and rationale for treatment to reduce apnea, improve sleep quality and reduce cardiovascular and cerebrovascular events was reviewed. I also reviewed the benefit of consistent device use of CPAP for depression/anxiety and attention deficit. 2. Overweight, unspecified. Currently patients BMI is 28.7. Obesity increases the risk of apnea, CPAP pressure requirements and overall health risks especially cardiovascular and diabetes. Thus patient is advised to lose weight. * Continue auto CPAP pressure at 6-8 cmH2O * Notify me if snoring with mask or feeling that the pressure is too much or too little * Attempt to lose weight * Call this office if any problems using CPAP * Return for follow up in 1 year, or sooner if concerns arise Counseling Topics: Weight loss health impact Visit Type: In Office Time Spent with Patient (minutes): 24 Provider Statement: I spent 100% of the Face to Face Visit with the patient with greater than 50% spent counseling the patient and coordination of care.
[2022-10-18 14:55] VITALS: BP 122/70; O2SAT 98
== END 2022-10-18 14:15 | disposition home or self-care (01) ==
LOC: SC 14:14
PROVIDERS: ATTEND Nurse Practitioner Family
DX: G47.33 Obstructive sleep apnea (adult) (pediatric) (principal); E66.3 Overweight; Z68.28 Body mass index [BMI] 28.0-28.9, adult
CPT/HCPCS: 99213; G0463; 99212

== ENCOUNTER 2023-10-21 08:00 | Outpatient (CLI) | payer MEDICARE, OTHER ==
[2023-10-22 00:20] LABS: BACTERIAL VAGINOSIS DNA NEGATIVE (NEGATIVE); CANDIDA KRUSEI DNA NEGATIVE (NEGATIVE); TRICHOMONAS VAGINALIS DNA NEGATIVE (NEGATIVE)
[2023-10-22 00:21] LABS: CANDIDA GLABRATA DNA NEGATIVE (NEGATIVE); CANDIDA GROUP DNA NEGATIVE (NEGATIVE)
== END 2023-10-21 23:59 | disposition home or self-care (01) ==
LOC: LAB.WC 08:00
PROVIDERS: ATTEND Obstetrics & Gynecology
DX: N89.8 Other specified noninflammatory disorders of vagina (principal)
CPT/HCPCS: 81514; 87661; 87801

== ENCOUNTER 2023-10-24 09:12 | Outpatient (CLI) | payer MEDICARE, OTHER ==
--- NOTE | 2023-10-24 10:11 | Sleep Patient Instructions ---
Sleep Center Visit Summary - Patient Visit Information Reason for Visit: Annual follow-up for PAP therapy - Patient Instructions Additional Instructions: You will continue with CPAP therapy with pressure set at 6-8 cmH2O. You will be completing a sleep study, either an in-lab polysomnography (PSG) or home sleep study (HST). You will follow-up in the sleep care office after the sleep study is completed to hear the results and talk about therapy, if needed. You will be called by our office staff to schedule this appointment, but you may contact us with any questions. - Clinic Information Contact: [facility] [address] [place] [address] [email or web address] T: [phone]
--- NOTE | 2023-10-24 10:19 | SLEEP CARE CONSULTATION ---
Information from patient questionnaire entered by Latricia Lennon. I have reviewed and concur with the information entered by Latricia Lennon. This document represents the service I personally performed and the decisions made by me, Yaquelin Dowling ARNP. History of Present Illness Service Date and Time: 10/24/2023911 Previous diagnosis: Mild, Obstructive Sleep Apnea-Hypopnea Syndrome AHI: 12 (in 2020) Reason for follow up: annual (LAST SEEN 10/2022) Equipment type: CPAP ([employer] - refurbished part received SD CARD NEEDED) Equipment obtained from: [employer] (in [place], not contacting them for supplies) Mask style: Nasal Prior sleep studies: Yes Year and Where: 2020-[facility]; 1999-[facility] in [place], [place]; 2005-[facility] Type of Sleep Study: Home sleep study HPI additional information: LISANDRO MARCANO was diagnosed to have mild, AHI 12, obstructive sleep apnea- hypopnea syndrome and returned today for CPAP therapy annual follow-up. Sleep Study - Results Type of Sleep Study: Home sleep study Prior sleep studies: Yes Year and Where: 2020-[facility]; 1999-[facility] in [place], [place]; [address] [place] [address] Sleep CPAP Compliance Data - Data Reviewed with Patient Average duration of nightly device use: 6 HRS 26 MINS 5 SECS Compliance rate %: 66.5 (10/08/22-04/07/23; 128/182 days used) Current pressure setting (cmH2O): 4-20 Average residual AHI: 4.4 Subjective Missed days of use due to: reports: other (she does not trust Kevin machine because it came dirty) Patient concerns: reports: other (DONT LIKE USING REFURBISHED KEVIN CPAP). denies: aerophagia, mask discomfort, air blowing in eyes, mask leak noise, condensation in mask/hose, nasal congestion, dry mouth, nose, throat, epistaxis Observed to snore while using device: No Current pressure setting perceived as: comfortable On therapy, patient: reports: sleeping better, more rested overall, other (she does not remember ). denies: drowsiness while driving (does not drive very much) Initial [place] Sleepiness Scale score: 10 (in 2020) Current [place] Sleepiness Scale score: 5 (10/24/23) Allergies and Home Medications Known drug allergies: Yes (as listed) Drug allergies reviewed: Yes Home medication list reviewed: Yes (aspirin 81 mg) Allergy and home medication list: Allergies bupropion [From Wellbutrin] Allergy (Verified 10/24/23 09:13) Unknown niacin Allergy (Verified 10/24/23 09:13) Unknown tape Allergy (Uncoded 10/24/23 09:13) Unknown Review of Systems Review of systems same as previous: No (POSSIBLE TIA) Physical Exam Vital signs obtained and entered by: LATRICIA Rea MA Blood Pressure: 135/68 (LEFT ARM) Cuff size: regular Heart Rate: 60 O2 Saturation: 91 Height: 5 ft 5 in Weight: 173 lb (with clothes/shoes on) Body Mass Index: 28.8 BMI Classification: Overweight Impression and Plan 1. Obstructive Sleep Apnea-Hypopnea Syndrome, mild, with fair treatment compliance and good apnea control when using her CPAP. On CPAP therapy, the patient has better sleep quality and is more rested overall. She received a replacement device from [employer]. She says when she got it the machine was dirty and as she got to thinking about it, she was concerned how dirty it might be inside the machine. She just does not trust the machine by [employer] and stopped using it at the end of March. She returns because she wants to wake up with energy and feeling rested. I reviewed her last sleep study which showed she could do positional therapy non-supine but she states she has more leg pain/hip pain with side sleeping and it not sure it would be sustainable. She is not sure an oral appliance would be something she could afford. She is open to restarting the CPAP if we can get a replacement device. We will need her to repeat the sleep study to requalify her for CPAP therapy and then we can see if she is eligible for a new device. She voiced understanding and agreement with plan of care. Patient's apnea severity and rationale for treatment to reduce apnea, improve sleep quality and reduce cardiovascular and cerebrovascular events was reviewed. I also reviewed the benefit of consistent device use of CPAP for depression/anxiety, attention deficit. She had a recent possible TIA and was place on a baby aspirin daily. 2. Overweight, unspecified. Currently patients BMI is 28.8. Obesity increases the risk of apnea, CPAP pressure requirements and overall health risks especially cardiovascular and diabetes. Thus patient is advised to continue to try to lose weight. * Continue auto CPAP pressure at 6-8 cmH2O when able * PSG to verify diagnosis and severity * Notify me if snoring with mask or feeling that the pressure is too much or too little * Attempt to lose weight * Call this office if any problems using CPAP * Return for follow up after sleep study, or sooner if concerns arise Continue with device pressure at (cmH2O): 6-8 Counseling Topics: Weight loss health impact Plan: PSG to verify diagnosis and severity Visit Type: In Office Time Spent with Patient (minutes): 28 Provider Statement: I spent 100% of the Face to Face Visit with the patient with greater than 50% spent counseling the patient and coordination of care.
[2023-10-24 10:20] VITALS: BP 135/68; O2SAT 91
== END 2023-10-24 09:13 | disposition home or self-care (01) ==
LOC: SC 09:12
PROVIDERS: ATTEND Nurse Practitioner Family
DX: G47.33 Obstructive sleep apnea (adult) (pediatric) (principal); E66.3 Overweight; Z68.28 Body mass index [BMI] 28.0-28.9, adult
CPT/HCPCS: 99213; G0463; 99212

== ENCOUNTER 2023-11-04 09:28 | Outpatient (CLI) | payer MEDICARE, OTHER | END 2023-11-04 09:29 | disposition home or self-care (01) | LOC: SC 09:28 | PROVIDERS: ATTEND Nurse Practitioner Family | DX: R09.02 Hypoxemia (principal) | CPT/HCPCS: 95806; G0399 ==

== ENCOUNTER 2023-11-13 13:18 | Outpatient (CLI) | payer MEDICARE, OTHER ==
--- NOTE | 2023-11-15 07:55 | Mammography Report ---
BILATERAL DIGITAL SCREENING MAMMOGRAM 3D/2D: 11/13/2023 CLINICAL: Routine screening. Comparison is made to exams dated: 11/18/2019 mammogram, 09/04/2018 mammogram, 09/02/2017 mammogram, 07/10 mammogram, 07/04/2015 mammogram, and 11/09/2021 mammogram - Located within [facility]. There are scattered areas of fibroglandular density in both breasts (category b / 25%-50% glandular t issue). No significant masses, calcifications, or other findings are seen in either breast. There has been no significant interval change. IMPRESSION: NEGATIVE There is no mammographic evidence of malignancy. A 1 year screening mammogram is recommended. Based on the Tyrer Cuzick model (a risk assessment model) the patient's lifetime risk is 4.7% and her 10 year risk is 3.2%. According to the ACR, ACS, and NCCN guidelines, an annual breast MRI exam lorena g with mammogram is recommended if the patient's lifetime risk is 20% or greater. This exam was interpreted at Station ID: [id number]. NOTE: For mammograms, a report in lay terms will be sent to the patient. Approximately 15% of breast malignancies will not be visualized mammographically. In the management of a palpable breast mass, a negative mammogram must not discourage biopsy of a clinically suspicious lesion. Electronically Signed By: Maryse Ren M.D., Ph.D. della/neha:11/14/2023 16:11:41 letter sent: No_Letter ACR BI-RADS Category 1: Negative [id number] PARENCHYMAL PATTERN: (A) - The breast(s) demonstrate(s) scattered fibroglandular densities. BI-RADS CATEGORY: (1) - 1 RECOMMENDATION: (ANNUAL) - Recommend routine annual screening mammography. [id number] 1 year screening LATERALITY: (B)
== END 2023-11-13 13:19 | disposition home or self-care (01) ==
LOC: DI 13:18
PROVIDERS: ATTEND Registered Nurse
DX: Z12.31 Encounter for screening mammogram for malignant neoplasm of breast (principal); R92.323 Mammographic fibroglandular density, bilateral breasts

== ENCOUNTER 2023-11-22 09:49 | Outpatient (CLI) | payer MEDICARE, OTHER ==
--- NOTE | 2023-11-22 10:13 | SLEEP CARE CONSULTATION ---
Information from patient questionnaire entered by Latricia Lennon. I have reviewed and concur with the information entered by Latricia Lennon. This document represents the service I personally performed and the decisions made by , Yaquelin Dowling ARNP. History of Present Illness Service Date and Time: 11/22/2023 0949 Initial [place] Sleepiness Scale score: 10 (in 2020) Current [place] Sleepiness Scale score: 7 (11/22/23) Additional HPI information: LISANDRO MARCANO returns for follow up and results of the recently performed home sleep study done on 11/04/23. The patient was informed of the following findings: No significant sleep diso rdered breathing with an average AHI of 1.2 and michelle oxygen saturation of 89%. The study was fair due to partial airflow signal loss and no supine sleep on night of study. I explained the pathophysiology behind obstructive sleep apnea. Patient does not have sleep apnea and was advised how weight gain could increase the risk of developing sleep apnea in the future. I strongly encouraged the patient to lose weight. Patient does not drink alcohol. Patient was cautioned about risks of drowsy driving until sleepiness symptoms resolve. Patient denies drowsy driving and does not drive very much. Sleep Study - Results Type of Sleep Study: Home sleep study (COMPLETED 11/04/23) Prior sleep studies: Yes Year and Where: 2020-[facility]; 1999-[facility] [place] in [place], [place]; 2005-[facility] Polysomnography/Home Sleep Study results: Physician Impression: The quality of the study is fair due to partial loss of airflow signal. The length of the study is adequate (> 240 minutes). Please also see the tabulated and graphic data. 1. No significant sleep disordered breathing, with an AHI of 1.2/hr and michelle SaO2 of 89%. During the study, the patient had 6 apneas (6 obstructive, 0 central, 0 mixed) and 0 hypopneas. The longest episode lasted 22.0 seconds. The patient did not sleep supine during this study (supine AHI was 0.0 and non-supine, 1.24). 2. Hypoxemia (ICD-10 R09.02), minimal, with the lowest oxygen saturation of 89 % and 1.1 minutes with SaO2 under 90%. Baseline oxygen saturation was normal (Average oxygen saturation was 95%). Allergies and Home Medications Known drug allergies: Yes (as listed) Drug allergies reviewed: Yes Home medication list reviewed: Yes (no changes) Allergy and home medication list: Allergies bupropion [From Wellbutrin] Allergy (Verified 11/22/23 09:50) Unknown niacin Allergy (Verified 11/22/23 09:50) Unknown tape Allergy (Uncoded 11/22/23 09:50) Unknown Review of Systems Review of systems same as previous: Yes (NO CHANGE) Physical Exam Vital signs obtained and entered by: LATRICIA Rea MA Blood Pressure: 145/58 (LEFT ARM) Cuff size: regular Heart Rate: 61 O2 Saturation: 99 Height: 5 ft 5 in Weight: 172 lb 12.8 oz Body Mass Index: 28.7 BMI Classification: Overweight Impression and Plan 1. Fatigue, unspecified. Patient sleep study was a fair study but it did not show any significant sleep disordered breathing. Patient states she only sleeps on her sides at home. Her previous study showed elevated AHI when sleeping supine. We did not get her on her back during the night of the study. I did offer to have her repeat the study in the sleep lab but she would like to think about it before committing to another study. I encouraged her to do positional therapy to avoid supine sleep in the meantime and follow-up with her primary care for further evaluation of her fatigue. She will return as needed. She voiced understanding. Patient agreed to plan. 2. Overweight, unspecified. Currently patients BMI is 28.7. Obesity increases the risk of apnea, CPAP pressure requirements and overall health risks especially cardiovascular and diabetes. Thus patient is advised to lose weight. * Avoid supine sleep * Attempt to lose weight * Return in as needed for follow up. Counseling Topics: Sleeping position, Weight loss health impact Follow up with Sleep Care in: as needed Visit Type: In Office Time Spent with Patient (minutes): 20 Provider Statement: I spent 100% of the Face to Face Visit with the patient with greater than 50% spent counseling the patient and coordination of care.
[2023-11-22 10:21] VITALS: BP 145/58; O2SAT 99
== END 2023-11-22 09:50 | disposition home or self-care (01) ==
LOC: SC 09:49
PROVIDERS: ATTEND Nurse Practitioner Family
DX: R53.83 Other fatigue (principal); E66.3 Overweight; Z68.28 Body mass index [BMI] 28.0-28.9, adult
CPT/HCPCS: 99213; G0463; 99212